=== PATIENT | male | born 1990 | race Caucasian/White ===

== ENCOUNTER 2020-10-24 13:42 | Emergency (ER) | payer BC ==
[~2020-10-24] VITALS: Ht 185.4 cm; Wt 138.3 kg
--- NOTE | 2020-10-24 13:45 | NUR ---
Patient to ER bed 07 to gown for evaluation. Side rails up.
--- NOTE | 2020-10-24 13:47 | NUR ---
Pt brought by self, A&Ox4, pt presents to ER with lower back pain, lower abdominal pain , also c/o intermittent lightheadache, skin pink and warm, cap refill <3, VSS, respirations even and unlabored.
[2020-10-24 13:49] VITALS: BP_SYST 160
--- NOTE | 2020-10-24 14:30 | NUR ---
Dr Walsh evaluating patient at bedside
[2020-10-24] MEDS ORDERED: NACL 0.9% 1,000 ML IV ONE (14:45)
[2020-10-24] MEDS ORDERED: ONDANSETRON HCL 4 MG/2 ML VIAL IVP ONE (14:45)
[2020-10-24] MEDS ORDERED: KETOROLAC TROMETHAMINE 30 MG VIAL IVP ONE (14:45)
[2020-10-24 15:08] LABS: BASOPHILS % (AUTO) 0.1 % (0.0-2.0); EOSINOPHILS # (AUTO) 0.1 K/uL (0.0-0.4); EOSINOPHILS % (AUTO) 0.4 % (0.0-4.0); HEMATOCRIT 48.3 % (36-54); LYMPHOCYTES % (AUTO) 14.9 % (20.5-51.5); MEAN CORPUSCULAR HEMOGLOBIN 29 pg (27-31); MEAN CORPUSCULAR HGB CONC 33 % (32-36); MEAN CORPUSCULAR VOLUME 88 fL (79.0-98.0); MONOCYTES # (AUTO) 1.5 K/uL (0.0-1.0); MONOCYTES % (AUTO) 11.1 % (1.7-9.3); NEUTROPHILS # (AUTO) 9.9 K/uL (1.8-7.7); NEUTROPHILS % (AUTO) 73.5 % (40.0-70.0); PLATELET COUNT (AUTO) 208 K/uL (130-430); RED BLOOD CELL COUNT(AUTO) 5.49 MIL/uL (4.2-6.2); RED CELL DISTRIBUTION WIDTH 13.4 % (9.0-15.0); WHITE BLOOD COUNT (AUTO) 13.4 K/uL (4.8-10.8)
[2020-10-24 15:17] LABS: CREATININE 1.64 mg/dL (0.55-1.30); POTASSIUM 4.1 mmol/L (3.5-5.1)
[2020-10-24 15:23] LABS: ALBUMIN 3.5 g/dL (3.4-4.8); TOTAL BILIRUBIN 0.7 mg/dL (0.0-1.0)
[2020-10-24 15:30] LABS: CALCIUM 8.6 mg/dL (8.4-11.0)
[2020-10-24 16:06] LABS: BILIRUBIN,URINE NEGATIVE (NEGATIVE); CLARITY/URINE CLEAR (CLEAR); GLUCOSE,URINE NEGATIVE (NEGATIVE); KETONES,URINE NEGATIVE (NEGATIVE); LEUKOCYTE ESTERASE ,URINE NEGATIVE (NEGATIVE); NITRITE, URINE NEGATIVE (NEGATIVE); PROTEIN URINE TRACE (NEGATIVE); UROBILINOGEN,URINE 0.2 (0.2-1.0)
[2020-10-24 16:19] LABS: BLOOD, URINE TRACE (NEGATIVE); COLOR,URINE STRAW (YELLOW)
[2020-10-24 16:52] LABS: BACTERIA,URINE RARE /HPF (None Seen); RBC,URINE 0-3 /HPF (0-3); WBC,URINE 0-3 /HPF (0-3)
[2020-10-24 16:53] LABS: MUCUS,URINE None Seen /LPF (None Seen)
--- NOTE | 2020-10-24 16:58 | NUR ---
Pt A&Ox4,VSS, respriations even and unlabored
--- NOTE | 2020-10-24 17:07 | NUR ---
Report given to [facility]
--- NOTE | 2020-10-24 18:03 | NUR ---
Patient given written and verbal discharge instructions and verbalizes understanding. ER MD discussed with patient the results and treatment provided. Patient in stable condition. ID arm band removed. IV catheter removed intact and dressing applied, no active bleeding. Rx of cipro and tylenol 3 given. Patient educated on pain management and to follow up with PMD. Pain Scale 2/10. Opportunity for questions provided and answered. Medication side effect fact sheet provided.
[2020-10-24 18:58] VITALS: BP_SYST 147
== END 2020-10-24 18:03 | disposition home or self-care (01) ==
LOC: SED 13:42
DX: R10.30 Lower abdominal pain, unspecified (principal); M54.5 Low back pain; I10 Essential (primary) hypertension
CPT/HCPCS: 36415; 74176; 76376; 80053; 81000; 85025; 96361; 96374; 96375; 99284; J1885; J2405; J7030

== ENCOUNTER 2023-06-24 19:18 | Emergency (ER) | payer BC, MEDICAID ==
[~2023-06-24] VITALS: Ht 185.4 cm; Wt 122.0 kg
[2023-06-24 20:16] VITALS: BP_SYST 143; PULSE 60; RESP 18; TEMP 98.2; O2SAT 99
[2023-06-24] MEDS ORDERED: AUG875 PO (21:39)
[2023-06-24 22:30] LABS: STREPTOCOCCUS A SCREEN (RAPID) NEGATIVE (NEGATIVE)
[2023-06-24 22:35] LABS: INFLUENZA TYPE A NEGATIVE (NEGATIVE); INFLUENZA TYPE B NEGATIVE (NEGATIVE)
[2023-06-24 22:47] VITALS: BP_SYST 132; PULSE 62; RESP 16; TEMP 98.2; O2SAT 99
== END 2023-06-24 22:47 | disposition home or self-care (01) ==
LOC: SED 19:18
DX: J02.9 Acute pharyngitis, unspecified (principal); I10 Essential (primary) hypertension; Z79.899 Other long term (current) drug therapy; Z20.822 Contact with and (suspected) exposure to COVID-19
CPT/HCPCS: 36415; 86403; 87081; 99283